=== PATIENT | female | born 1960 | race Caucasian/White ===

== ENCOUNTER 2024-03-01 05:12 | Observation (INO) ==
--- NOTE | 2024-01-22 11:10 | PAT Medication Instructions ---
Medication Instructions Date of Service January 22, 2024 Home Medications acetaminophen 650 mg tablet,extended release 1,300 mg PO BID PRN Pain celecoxib 200 mg capsule (Celebrex) 200 mg PO BID multivitamin 1 tab PO QAM tramadol 50 mg tablet 50 mg PO Q8H PRN Pain ASK your surgeon for instructions celecoxib 200 mg capsule (Celebrex) 200 mg PO BID DO NOT take the morning of surgery multivitamin 1 tab PO QAM Take morning of surgery With a small sip of water, OTHERWISE NOTHING TO EAT OR DRINK AFTER MIDNIGHT: acetaminophen 650 mg tablet,extended release 1,300 mg PO BID PRN Pain (if needed) tramadol 50 mg tablet 50 mg PO Q8H PRN Pain (if needed) Take evening before surgery acetaminophen 650 mg tablet,extended release 1,300 mg PO BID PRN Pain (if needed) tramadol 50 mg tablet 50 mg PO Q8H PRN Pain (if needed) Other Notes If you have any questions please call us at [phone] or [phone] or [phone] or [phone]
--- NOTE | 2024-01-27 10:20 | Anesthesiology Consultation ---
Date of Service January 27, 2024 Assessment & Plan (1) Encounter for pre-operative examination: - Infectious disease screening: Per assessment on 01/27/24: No known infectious disease contacts or current infectious disease symptoms. No noted recent Covid positive test result. - Outpatient joint assessment: Pt currently scheduled for inpatient pathway (per surgeon paperwork + patient confirmation > OR made aware). If surgeon requests review for outpatient joint pathway, patient is acceptable candidate for outpatient joint program from anesthesia standpoint pending surgeon's office assessment that patient is motivated, has good support and completes [facility] Program preop requirements. - S/P Left NISHA (09/26/16): SAB at L3/4 x1 attempt at [facility] - Patient acceptable risk for surgery pending surgeon-ordered PCP preop evaluation ([facility] Levon Adams, appt 02/18). Chart Review Chart Review: Patient seen in Pre Admission Testing Teaching & Discussion Pre-Anesthesia Teaching/Discussion Notes: Instructed NPO after midnight before surgery,except medications with 15 cc of water. Medication instructions provided according to the PAT guidelines. History Surgery Operation Date: 03/01/24 10:50 Proposed Procedures p Right Total Hip Replacement - Anterior Approach - Tico Healy MD Height/Weight Height: 5 ft 9 in Weight: 123.7 kg Allergies Allergy/AdvReac Type Severity Reaction Status Date / Time Egg Derived Allergy Mild Rash, Verified 01/27/24 09:07 diarrhea Penicillins Allergy Mild Childhood Verified 01/27/24 09:07 reaction ("told not to take") Medications Home Medications Medication Instructions Recorded Confirmed Last Taken acetaminophen 650 mg 1,300 mg PO BID PRN Pain 01/13/24 01/13/24 Unknown tablet,extended release celecoxib 200 mg capsule (Celebrex) 200 mg PO BID 01/13/24 01/13/24 Unknown multivitamin 1 tab PO QAM 01/13/24 01/13/24 Unknown tramadol 50 mg tablet 50 mg PO Q8H PRN Pain 01/13/24 01/13/24 Unknown Past Medical History Medical History Osteoarthritis Exercise / Class Metabolic Activity III < 4 Walking/Shop/Light housework Past Surgical History Surgical History History of bilateral tubal ligation History of dilatation and curettage D&E History of total left hip arthroplasty Left NISHA (09/26/16): SAB at L3/4 x1 attempt at [facility] History of total left knee replacement History of total right knee replacement Hx laparoscopic cholecystectomy Hx of arthroscopy of left knee multiple Hx of arthroscopy of right knee multiple Hx of bilateral cataract extraction Hx of knee surgery multiple prior to arthroscopies Nausea and vomiting after administration of anesthetic agent Remote hx, no issue with more recent procedures since the Past Anesthesia History No Hx of Anesthesia Complications and No Family Hx of Anesthesia Complications History of PONV History of PONV (Remote hx, no issue with more recent procedures since the ) and Hx of Motion Sickness (occasional) Social History Smoking Status: Never smoker Do You Dip or Chew Tobacco: No Hx Alcohol Use: Yes alcohol intake frequency: holidays/special occasions only Hx Substance Use: No substance use type: does not use Review of Systems Patient denies chest pain, shortness of breath, dyspnea on exertion, fever, chills, cough, wheezing, palpitations. Physical Exam Vital Signs BP 135/84 P 81 TEMP 97.9 SP02 95%RA RESP 16 Physical Full cervical extension range of motion. Full TMJ range of motion. TMD 2.5 finger breaths (small chin) Mallampati Score 1 Dentition: missing molars, + several crowns Lungs: clear throughout to auscultation Cardiac: regular rate and rhythm, no murmurs noted, distant heart sounds Spine: normal Carotid arteries: negative bruit Extremities: no LE edema Lab Results Anesthesia Preop Results Results Anesthesia Widget: WBC 7.40 K/ul (4.8-10.8) 01/27/24 Hgb 14.4 g/dl (12.0-16.0) 01/27/24 Hct 44.4 % (37.0-47.0) 01/27/24 Plt 275 K/uL (130-400) 01/27/24 Na 139 mmol/L (136-145) 01/27/24 K 4.3 mmol/L (3.5-5.1) 01/27/24 Cl 105 mmol/L (98-107) 01/27/24 CO2 29 mmol/L (21-32) 01/27/24 BUN 18 mg/dl (6-23) 01/27/24 Creat 0.74 mg/dl (0.6-1.2) 01/27/24 Glucose Level 105 mg/dl (70-99(Fasting)) H 01/27/24 PT 11.1 Seconds (9.0-12.0) 01/27/24 PTT 29 Seconds (21-31) 01/27/24 INR 1.0 (0.9-1.1) 01/27/24 Urine Color Dark Yellow 01/27/24 Urine Appearance Cloudy (Clear) A 01/27/24 Urine pH 5.0 (4.5-7.5) 01/27/24 Urine Specific Omer 1.034 (1.000-1.030) H 01/27/24 Urine Protein Trace (Negative) H 01/27/24 Urine Glucose (UA) Negative (Negative) 01/27/24 Urine Ketones Negative (Negative) 01/27/24 Urine Blood Negative (Negative) 01/27/24 Urine Nitrite Negative (Negative) 01/27/24 Urine Bilirubin Negative (Negative) 01/27/24 Urine Urobilinogen Negative (Negative) 01/27/24 Urine Leukocyte Esterase Trace (Negative) H 01/27/24 Urine WBC (Auto) 0-5 /hpf (0-5) 01/27/24 Urine RBC (Auto) 6-10 /hpf (0-2) H 01/27/24 Urine Hyaline Casts (Auto) 3-5 /lpf (0-2) H 01/27/24 Urine Epithelial Cells (Auto) 11-20 /hpf (0-2) H 01/27/24 Urine Bacteria (Auto) 2+ (None Seen) H 01/27/24 Blood Type AB Positive 01/27/24 Antibody Screen NEGATIVE 01/27/24 Testing Laboratory Results *Surgeon's office made aware of abnormal UA* Electrocardiogram Date: 01/27/24 NSR at 70bpm. "Normal ECG" Chest X-Ray Date: 01/27/24 FINDINGS: Stable small linear scarlike density at the left lung base. Otherwise, the lungs are clear. No pleural effusions. No pneumothorax. The heart is normal in size. No acute fractures. IMPRESSION: No significant change compared to the prior study. No acute process.
--- NOTE | 2024-02-25 15:28 | History & Physical Report ---
Date of Service February 25, 2024 Assessment & Plan (1) Degenerative joint disease of right hip: Plan: Right total hip replacement direct anterior approach overnight stay home health will be with [facility] (2) Obesity, Class III, BMI 40-49.9 (morbid obesity): History of Present Illness Chief Complaint: Right hip pain Primary Care Provider: NO PCP Patient is an obese 62-year-old female with a history of bilateral total knees and left total hip replacement. She now presents with greater than 1 year of right hip and groin pain. She has limited standing and walking tolerance associated with decreased range of motion. She cannot tie her shoe and sock. She requires a cane for ambulation. She has tried a trochanteric injection which has not helped. She has not recently lost 40 pounds and a test anticipation for surgery. She is admitted now for elective hip replacement. Allergies Allergy/AdvReac Type Severity Reaction Status Date / Time Egg Derived Allergy Mild Rash, Verified 01/27/24 09:07 diarrhea Penicillins Allergy Mild Childhood Verified 01/27/24 09:07 reaction ("told not to take") Home Medications Medication Instructions Recorded Confirmed Type acetaminophen 650 mg 1,300 mg PO BID PRN Pain 01/13/24 01/13/24 History tablet,extended release celecoxib 200 mg capsule (Celebrex) 200 mg PO BID 01/13/24 01/13/24 History multivitamin 1 tab PO QAM 01/13/24 01/13/24 History tramadol 50 mg tablet 50 mg PO Q8H PRN Pain 01/13/24 01/13/24 History Past Med/Surg History Medical History Osteoarthritis Surgical History Nausea and vomiting after administration of anesthetic agent Remote hx, no issue with more recent procedures since the 1980s History of dilatation and curettage D&E History of bilateral tubal ligation Hx of knee surgery multiple prior to arthroscopies Hx of arthroscopy of right knee multiple Hx of arthroscopy of left knee multiple History of total left hip arthroplasty Left NISHA (09/26/16): SAB at L3/4 x1 attempt at [facility] History of total right knee replacement History of total left knee replacement Hx laparoscopic cholecystectomy Hx of bilateral cataract extraction Social History Smoking Status: Never smoker Second Hand Exposure: Yes (hx growing up); Do You Dip or Chew Tobacco: No; Tobacco Cessation Education Requested by Patient: No Hx Alcohol Use: Yes Hx Substance Use: No Preferred Language: Setswana Communication Ability: Effective Mathematics Faculty Member Required: No Beliefs That Will Affect Care: None Current Living Situation: Spouse Other Information That Helps Us Care for You: No Feels Safe at Home: Yes Safety Concerns: Feels Safe At This Time Assistive Devices: Glasses Review of Systems Review of Systems: Right hip and groin pain Physical Exam Physical Exam: Weight is 123 kg BMI of 40 General: Obese woman who appears slightly older than her stated age HEENT: NCAT, EOMI, PERRLA. Neck: Negative bruits Heart: Regular rate and rhythm no murmurs Lungs: Breath sounds clear and present in all morales Abdomen: Obese soft nontender bowel sounds are positive Extremities: Right hip shows equal leg lengths to the left passive range of motion is 0 to 85 degrees flexion -15 degrees internal rotation all which reproduces groin pain. Neurological and vascular: Intact Results & Data Results & Data Vital Signs (Past 12 Hours) Blood pressure 124/80 Pulse 87
[~2024-03-01 05:12] MED LIST: ALLERGY Noted to ORDERED Medication SCH
[2024-03-01] MEDS: LR 500ML BOLUS, THEN 15ML/HR IV SCH (05:55)
[2024-03-01] MEDS: dexAMETHasone**PF** 10 MG/ML VIAL IV SCH (05:56)
[2024-03-01] MEDS: traMADol HCL 50 MG TABLET PO SCH (05:57)
[2024-03-01] MEDS: ACETAMINOPHEN 500 MG TAB PO SCH ×2 (05:58→14:06)
[2024-03-01] MEDS: FAMOTIDINE 20 MG TAB PO SCH (05:59)
[2024-03-01] MEDS: METOCLOPRAMIDE HCL 10 MG TABLET PO SCH (06:00)
[2024-03-01] MEDS: LR 60ML/HR IV SCH (06:01)
[2024-03-01] MEDS: GABAPENTIN 600 MG DOSE PO SCH (06:02)
[2024-03-01] MEDS: CeleBREX 200 MG CAP PO SCH ×2 (06:02→11:30)
[2024-03-01] MEDS ORDERED: Nursing to Pharmacy Communication SCH (06:15)
[2024-03-01] MEDS ORDERED: BUPIVACAINE 0.5 % 5 MG/1 ML PF 10ML VIAL ONE (06:21)
[2024-03-01] MEDS ORDERED: fentaNYL citrate PF 100 MCG/2 ML VIAL ONE (06:25)
[2024-03-01] MEDS ORDERED: MIDAZOLAM HCL 1 MG/ML 2ML VIAL ONE (06:25)
[2024-03-01] MEDS ORDERED: PROPOFOL IV EMULSION 10 MG/ML 20 ML VIAL IV ONE (06:26)
[2024-03-01] MEDS ORDERED: ONDANSETRON INJ 2 MG/ML 2 ML VIAL ONE (06:30)
[2024-03-01] MEDS ORDERED: DEXAMETHASONE SOD INJ 4 MG/ML VIAL ONE (06:30)
--- NOTE | 2024-03-01 06:33 | History & Physical Bridge Note ---
Date of Service March 01, 2024 History & Physical Bridge Note I have examined the patient, reviewed the History & Physical and in the interval since the performance of the History & Physical I have noted the following changes of clinical significance: no changes noted
[2024-03-01] MEDS ORDERED: SCOPOLAMINE 1 MG/72 HR TDSY PATCH TD ONE (06:41)
[2024-03-01] MEDS: TRANEXAMIC ACID 1,000 MG **IV Pre-op IV SCH (06:45)
[2024-03-01] MEDS ORDERED: ePHEDrine sulfate 50 MG/ML AMP IV PRN (07:05)
[2024-03-01] MEDS ORDERED: HYDROmorphone INJ 1 MG/ML SYRINGE IV PRN (07:05)
[2024-03-01] MEDS ORDERED: NALOXONE HCL 0.4 MG/1 ML VIAL/CARP IV PRN ×2 (07:05→08:42)
[2024-03-01] MEDS ORDERED: ATROPINE SULFATE 0.1 MG/ML 10ML SYR IV PRN (07:05)
[2024-03-01] MEDS ORDERED: fentaNYL citrate PF 100 MCG/2 ML VIAL IV PRN (07:05)
[2024-03-01] MEDS ORDERED: FLUMAZENIL 0.1 MG/1 ML 10 ML VIAL IV PRN (07:05)
[2024-03-01] MEDS ORDERED: ONDANSETRON INJ 2 MG/ML 2 ML VIAL IV PRN ×2 (07:05→08:42)
[2024-03-01] MEDS ORDERED: PROMETHAZINE HCL 6.25 MG in SODIUM CHLORIDE 0.9% 50 ML IV PRN (07:05)
[2024-03-01] MEDS: ceFAZolin 3000MG 3,000 MG/72.5 ML BAG IV STA (07:12)
[2024-03-01] MEDS ORDERED: PHENYLEPHRINE 100MCG/ML 10ML SYR IV ONE (07:42)
[2024-03-01] MEDS ORDERED: METOCLOPRAMIDE HCL INJ 5 MG/ML 2 ML VIAL ONE (07:42)
[2024-03-01] MEDS ORDERED: PHENYLEPHRINE HCL 10 MG/ML VIAL ONE (07:53)
[2024-03-01] MEDS: ORTHO JOINT ANESTHETIC ONE (07:55)
[2024-03-01] MEDS ORDERED: ePHEDrine sulfate 50 MG/ML AMP ONE (08:20)
[2024-03-01] MEDS ORDERED: KETOROLAC 30 MG/ML VIAL ONE (08:33)
[2024-03-01] MEDS: ROPIV 0.5% 246mg, Ketorolac 30mg, EPINEPHrine 0.5mg in NSS INFIL SCH (08:38)
[2024-03-01] MEDS: TRANEXAMIC ACID 1,000 MG **IV Intra-op IV SCH (08:38)
--- NOTE | 2024-03-01 08:41 | Post Operative Brief Note ---
Immediate Post Op Note v1 Date of Surgery March 01, 2024 Pre & Post Diagnosis Operation Date: 03/01/24 07:15 Pre-Op Diagnosis: Degenerative joint disease of right hip Morbid obesity BMI 42 Post-Op Diagnosis: Degenerative joint disease of right hip Morbid obesity BMI 42 I identified the patient and participated in the time-out.: Yes Procedure Operation Date: 03/01/24 07:15 Actual Procedures p Right Total Hip Replacement - Anterior Approach(Right) - Tico Healy MD Surgeon Tico Healy MD Manager Systems Nathan Mooney PAAbdoulayeC Estimated Blood Loss 200 Findings Consistent with Post-Op Diagnosis Drains Hemovac Drain
[2024-03-01] MEDS ORDERED: METOCLOPRAMIDE HCL INJ 5 MG/ML 2 ML VIAL IV PRN (08:42)
[2024-03-01] MEDS ORDERED: ALUMINUM/MAGNESIUM SUSP 30 ML UDC PO PRN (08:42)
[2024-03-01] MEDS ORDERED: bisacodyL 10 MG SUPP PR PRN (08:42)
[2024-03-01] MEDS ORDERED: MAGNESIUM HYDROXIDE SUSP 30 ML UDC PO PRN (08:42)
--- NOTE | 2024-03-01 08:53 | Fluoroscopy Report ---
FL hip RT 1V CLINICAL HISTORY: RT ANTERIOR NISHA COMPARISON STUDY: Pelvis radiograph September 26, 2016. FLUOROSCOPY TIME: 22 seconds. Ka, r: 6.01 mGy FLUOROSCOPIC IMAGES: 1 FINDINGS: Fluoroscopy was provided during total anterior right hip arthroplasty. Alignment is anatomi c. Hardware is intact. No fracture is identified by fluoroscopy. IMPRESSION: Fluoroscopy provided during total anterior right hip arthroplasty. ACT 112: Negative or not required by law. Electronically signed by: Johnny Castellano M.D. 03/01/2024 8:52 AM
--- NOTE | 2024-03-01 08:58 | Operative Report ---
Post Operative Report Pre & Post Diagnosis Operation Date: 03/01/24 07:15 Pre-Op Diagnosis: Degenerative joint disease of right hip Morbid obesity BMI 42 Post-Op Diagnosis: Degenerative joint disease of right hip Morbid obesity BMI 42 I identified the patient and participated in the time-out.: Yes Procedure Operation Date: 03/01/24 07:15 Actual Procedures p Right Total Hip Replacement - Anterior Approach(Right) - Tico Healy MD Surgeon Tico Healy MD Banking Analyst Nathan Mooney PA-C Estimated Blood Loss 200 Findings Consistent with Post-Op Diagnosis patient had a morbidly obese body habitus with a very large subcutaneous fat layer and large pendulous abdomen which added an element of increased difficulty and increased the surgical time by at least 25% The hip showed severe degenerative changes with a chronically inflamed synovial lining Specimens femoral head capsular tissue and partial synovial tissue Complications none Indications components used: [employer] anthology hip system: Acetabulum size 52 with 25 mm dome screw and 36 mm highly cross-linked polyethylene liner. Femur size 4 standard offset with 0 neck length 36 mm Oxinium head Note: Again this patient's morbidly obese body habitus added an element of increased difficulty and at least 25% increased time to the surgical procedure. Description of Procedure Following satisfactory spinal anesthesia the patient was supine on the operating room table. Positioning was difficult because of the patient's large body habitus. The large pendulous abdomen had to be taped out of the way with multiple pieces of tape. The right leg was placed in the traction and device in the left leg in the well-leg murphy. Positioning was confirmed with fluoroscopy which was suboptimal visualization because of the patient's large body habitus. The leg was then prepared with ChloraPrep and draped sterilely. A surgical timeout was performed. An anterior approach was performed in the interval between the sartorius and te nsor muscles. There was a very large subcutaneous fat layer with multiple bleeding points which were controlled. The circumflex femoral vessels were identified and coagulated. An anterior capsulotomy was performed exposing the arthritic femoral neck and head. Fluoroscopy was used to confirm femoral neck resection level which was completed and the arthritic femoral head was removed. The acetabular self-retaining retractor was placed. Acetabular preparation was completed with excision of labral and some of the capsular tissue. The wound was extremely deep because of the patient's large body habitus. The acetabulum was then reamed under direct vision. A 52 shell was impacted into a healthy bed into a position of 35 to 40 degrees of abduction 25 degrees of anteversion confirmed with fluoroscopy. A dome screw was placed followed by the polyethylene liner and local anesthetic was placed. Should be noted that there was general oozing throughout especially from the cut surface of the femur. The femur was placed into a position of external rotation extension and adduction. Femoral canal was identified and was prepared to the size 4. Note that preop templating was off again because of the large body habitus. A trial reduction with a size 4 standard offset stem and a 0 neck length head showed good fit and fill of the proximal canal and very good orientation of the components. Leg length and offset appeared to be restored at the level of the lesser trochanter. The hip was dislocated. The trial component removed. Local anesthetic was placed. The wound was irrigated and the final stem head complex of the same size was placed. The hip was reduced with fluoroscopy confirming similar findings. The wound was irrigated with 500 cc of experience irrigation. Because of the patient's large body habitus and general oozing a drain was placed deep. The tensor fascia was closed with a running suture of 0 strata fix. The subcutaneous fat was then irrigated and another drain placed because of the large size of the fat layer. The subcutaneous fat was closed in multiple layers with 0 strata fix. The skin was closed with a running subcuticular stitch of 3 oh strata fix. Prineo dressing and negative pressure wound dressing were applied. Patient was returned to her bed in stable condition. Note: Nathan STARR was present and assisted throughout due to the c omplicated nature of this case. He help with preparation and set up an assistant manager trainee throughout. He assisted with hemostasis and exposure throughout the procedure. He also closed the fascial subcutaneous and skin layers and applied the postop dressing. I attest to the content of the Intraoperative Record and any orders documented therein. Any exceptions are noted below.
[2024-03-01] MEDS: SODIUM CHLORIDE 0.9% 1,000 ML IV SCH (10:36)
[2024-03-01] MEDS: FAMOTIDINE/PF 20 MG/2 ML VIAL IV ONE (10:38)
--- NOTE | 2024-03-01 11:12 | Anesthesiology Progress Note ---
Date of Service March 01, 2024 Anesthesia Post Procedure Vital Signs Vital Signs: Temp Pulse Pulse Resp BP Pulse Ox O2 Del Method 03/01/24 10:50 36.4 C L 91 H 16 123/81 96 Room Air 03/01/24 10:20 36.4 C L 98 H 18 136/82 96 Room Air 03/01/24 10:00 36.3 C L 97 H 18 124/83 95 Room Air 03/01/24 09:50 36.3 C L 94 H 18 128/73 97 Room Air 03/01/24 09:40 98 H 18 125/85 100 Room Air 03/01/24 09:30 93 H 22 127/83 100 Oxymask 03/01/24 09:20 97 H 17 138/86 97 Oxymask 03/01/24 09:12 36.3 C L 106 H 16 133/85 94 Room Air 03/01/24 05:38 36.7 C 73 20 167/95 H 99 Room Air O2 Flow Rate 03/01/24 10:50 03/01/24 10:20 03/01/24 10:00 0 03/01/24 09:50 0 03/01/24 09:40 0 03/01/24 09:30 6 03/01/24 09:20 6 03/01/24 09:12 03/01/24 05:38 Pain Intensity Right Hip: Pain Intensity: 3 Transfer of Care Handoff Completed per policy Notes Mental Status: alert / awake / arousable Patient Amnestic to Procedure: Yes Nausea / Vomiting: adequately controlled Pain: adequately controlled Airway Patency, RR, SpO2: stable & adequate BP & HR: stable & adequate Hydration State: stable & adequate Neuraxial Anesthesia: was administered and sensory block is resolving Anesthetic Complications: no major complications apparent
[2024-03-01] MEDS: ASPIRIN 81 MG ECTAB PO SCH (11:30)
[2024-03-01] MEDS: MULTIVITAMIN TAB PO SCH (11:30)
[2024-03-01] MEDS: DOCUSATE SODIUM 100 MG CAP PO SCH (11:30)
[2024-03-01] MEDS: ceFAZolin 2000MG 2,000 MG/15 ML SYR IV SCH (14:06)
[2024-03-01] MEDS: SENNA 8.6 MG TAB PO SCH (19:56)
[2024-03-01] MEDS: traMADol HCL 50 MG TABLET PO PRN (19:59)
[2024-03-02 06:53] LABS: Basophils # (auto) 0.01 K/uL (0.00-0.20); Basophils % (auto) 0.1 %; Hematocrit (blood only) 32.9 % (37.0-47.0); Hemoglobin 11.1 g/dl (12.0-16.0); Immature Granulocytes # (auto) 0.18 K/uL (0.01-0.20); Immature Granulocytes % (auto) 1.1 %; Lymphocytes # (auto) 1.08 K/uL (1.20-3.40); Lymphocytes % (auto) 6.7 %; Mean Corpuscular Hemoglobin 28.8 pg (25.0-34.0); Mean Corpuscular Hgb Conc 33.7 g/dL (32.0-36.0); Mean Corpuscular Volume 85.2 fL (80.0-100.0); Mean Platelet Volume 10.4 fL (9.4-12.4); Monocytes # (auto) 0.35 K/uL (0.11-0.59); Monocytes % (auto) 2.2 %; Neutrophils # (auto) 14.42 K/uL (1.40-6.50); Neutrophils % (auto) 89.9 %; Platelet Count 224 K/uL (130-400); RDW Coefficient of Variation 12.3 % (11.5-14.5); RDW Standard Deviation 37.8 fL (36.4-46.3); Red Blood Count 3.86 M/uL (4.20-5.40); White Blood Count 16.04 K/ul (4.8-10.8)
--- NOTE | 2024-03-02 07:31 | Orthopedic Progress Note ---
Date of Service March 02, 2024 Assessment & Plan (1) S/P total hip arthroplasty: Plan: patient is doing very well. She offers no complaints and is ambulating independently. She will be evaluated by physical therapy this morning but as long as she is cleared she will be discharged to home. Plan for follow[facility]up with [facility] to begin on . Today we did review her dressing management. She does have an adhesive allergy and she is to remove her darrell dressing in 7 days. We also reviewed her medication protocol and hip precautions. She will follow-up in the office in 2 weeks time (2) Obesity, Class III, BMI 40-49.9 (morbid obesity): Admission and Anticipated Discharge Date Admission Date: March 01, 2024 Subjective Postoperative day #1 right total hip replacement Patient reports feeling very well. She has been up and ambulatory to the bathroom without assistance. She states that she is very happy that she has no hip or groin pain and can ambulate without problems. She denies any lightheadedness or other symptoms. Physical Exam Physical Exam: Patient is examined at the bedside. Her hip dressing is clean dry and intact. Her thigh and calf are soft and nontender. Her hip is located. She is neurologically and vascularly intact. Hemovac drainage 100 cc last shift Results & Data Vital Signs (Past 12 Hours) Vital Signs Temp Pulse Resp BP Pulse Ox O2 Del Method 03/02/24 04:34 36.8 C 77 16 113/63 96 Room Air 03/02/24 00:33 119/66 03/01/24 23:22 36.5 C 80 15 95/57 L 94 Room Air Laboratory Results hemoglobin 11.1
[2024-03-02 08:27] LABS: BUN Creatinine Ratio 28.8 (10-20); Calcium 8.7 mg/dl (8.6-10.3); Creatinine Clr Calc Pharmacy 101.8 ml/min; Est GFR (African American) 90.9 ml/min; Est GFR (Non-African American) 78.5 ml/min; Potassium 4.4 mmol/L (3.5-5.1)
--- NOTE | 2024-03-04 13:23 | Discharge Summary ---
Date of Service March 04, 2024 Admission HPI Per Admitting Provider Patient is an obese 62-year-old female with a history of bilateral total knees and left total hip replacement. She now presents with greater than 1 year of right hip and groin pain. She has limited standing and walking tolerance associated with decreased range of motion. She cannot tie her shoe and sock. She requires a cane for ambulation. She has tried a trochanteric injection which has not helped. She has not recently lost 40 pounds and a test anticipation for surgery. She is admitted now for elective hip replacement. Admission Exam Per Admitting Provider Physical Exam: Weight is 123 kg BMI of 40 General: Obese woman who appears slightly older than her stated age HEENT: NCAT, EOMI, PERRLA. Neck: Negative bruits Heart: Regular rate and rhythm no murmurs Lungs: Breath sounds clear and present in all morales Abdomen: Obese soft nontender bowel sounds are positive Extremities: Right hip shows equal leg lengths to the left passive range of motion is 0 to 85 degrees flexion -15 degrees internal rotation all which reproduces groin pain. Neurological and vascular: Intact Principal Diagnosis Right Hip Djd Discharge Data Allergies Allergy/AdvReac Type Severity Reaction Status Date / Time Egg Derived Allergy Mild Rash, Verified 03/01/24 05:33 diarrhea Penicillins Allergy Mild Childhood Verified 03/01/24 05:33 reaction ("told not to take") Procedures Performed Operation Date: 03/01/24 07:15 Actual Procedures p Right Total Hip Replacement - Anterior Approach(Right) - Tico Healy MD Ordered Studies 03/01/24 07:15 FL hip RT 1V Routine Hospital Course (1) S/P total hip arthroplasty: Patient: KAREN HOWARD Admit Date: 03/01/24 MR#: [id number] Att Phy: Tico Healy MD Acct ID: [id number] Janine Phy: PCP,NO Date: 1960 Fam Phy: Age: 63 Location: 3E Sex: F Room/Bed: E311-1 cc: ~ *NOTICE TO RECEIVING [employer]/AGENCY This information is strictly Confidential and protected under [place] law. [place] law prohibits you from making any further disclosure of this information unless further disclosure is expressly permitted by the written consent of the person to whom it pertains or is authorized by law. A general authorization for the release of medical or other information is not sufficient for this purpose. Hospital accepts no responsibility if the information is made available to any other person, INCLUDING THE PATIENT. Date of Service March 02, 2024 Assessment & Plan (1) S/P total hip arthroplasty: Plan: patient is doing very well. She offers no complaints and is ambulating independently. She will be evaluated by physical therapy this morning but as long as she is cleared she will be discharged to home. Plan for follow-up with [facility] to begin on . Today we did review her dressing management. She does have an adhesive allergy and she is to remove her mare dressing in 7 days. We also reviewed her medication protocol and hip precautions. She will follow-up in the office in 2 weeks time (2) Obesity, Class III, BMI 40-49.9 (morbid obesity): Admission and Anticipated Discharge Date Admission Date: March 01, 2024 Subjective Postoperative day #1 right total hip replacement Patient reports feeling very well. She has been up and ambulatory to the bathroom without assistance. She states that she is very happy that she has no hip or groin pain and can ambulate without problems. She denies any lightheadedness or other symptoms. Physical Exam Physical Exam: Patient is examined at the bedside. Her hip dressing is clean dry and intact. Her thigh and calf are soft and nontender. Her hip is located. She is neurologically and vascularly intact. Hemovac drainage 100 cc last shift Results & Data Vital Signs (Past 12 Hours) Vital Signs Temp Pulse Resp BP Pulse Ox O2 Del Method 03/02/24 04:34 36.8 C 77 16 113/63 96 Room Air 03/02/24 00:33 119/66 03/01/24 23:22 36.5 C 80 15 95/57 L 94 Room Air Laboratory Results hemoglobin 11.1 Signed By: <Electronically signed by Tico Healy MD> 03/02/24 0731 Created: 03/02/24 0728 The status of this report is Signed. (2) Obesity, Class III, BMI 40-49.9 (morbid obesity): Total Time Total Time Spent Total Time Spent (In Minutes): 5 Discharge Plan Discharge Items Patient Disposition: Home - Home Health Services Reason For Visit: Right Hip Osteoarthritis Discharge Diagnosis: Right Hip Osteoarthritis Activity: Per Instructions section Weightbearing: Full weightbearing Non-emergency contact: Surgeon Call non-emergency contact if: you have any medication questions, your pain is not controlled, your temperature is above 101.5, your wound has increased redness and your wound has increased drainage Follow-up/Referrals: [facility] [Outside] Tico Healy MD [Surgeon] - (Follow up with Dr. Healy or his PA in 2 weeks from the day of your surgery for your first post operative visit. ) PCP,NO [Primary Care Provider] - Diet: Regular Addtl Attending Provider Instructions: DR. BATEMAN POST-OP INSTRUCTIONS FOR TOTAL HIP ARTHROPLASTY PLEASE REVIEW PRIOR TO SURGERY Day of Surgery You will be admitted and meet the nursing and anesthesia team. Dr. Healy will see you and sign your operative side. Anesthesia will place your spinal anesthetic in the pre-op area Your surgery will be performed and last approximately 1 2 hours. Upon waking, you will notice a dressing and ice pack on your hip. You will remain in the recovery room for 1 2 hours, then be transferred to your room in the ambulatory surgical area if you are to go home the same day as your surgery or transferred to the orthopedic floor if you will be staying overnight. Most of Dr. Bateman total hip patients go home the same day as surgery. This depends on how well you feel. Patients generally seem to feel better in their own home environment, and the risk of exposure to bad bugs is much lower. (Your post-operative medications will be sent to your pharmacy approximately 1-2 days prior to your procedure) Day 1 post-op (if you have an overnight stay in the hospital) You will have bloodwork drawn in the morning Physical therapy will evaluate you in the morning. You will start getting out of bed and ambulating with a walker. They will instruct you on hip motion exercises. Use your cold packs as instructed. This will decrease swelling and minimize pain. visitor services technician will discuss your discharge plan. Discharge will generally be around 11am Day 1 post-op (all patients) You will be taking Aspirin 81mg twice for 4 weeks to decrease the risk of a blood clot. You will most likely have a drain and a MARE (superficial wound VAC) dressing post-operatively. This will keep your incision dry as well as aid in early healing. The batteries will wear out and the VAC will lose suction around day 6 - 7 post-op. At that time, you may turn off the device and disconnect from the dressing. You must keep the dressing on until your first post- operative visit with Dr. Healy. If the dressing appears to be saturated, please call our office. Day 2 14 post-op You will have a home nurse visit to assess your status and remove your drain on post-op day 2. You are permitted to shower immediately with the VAC. Do not soak the dressing let the shower flow on your opposite side, and pat dry the plastic. Once the dressing has been removed, you may shower normally with the incision exposed. Do not rub the area simply let soapy water run over the incision and lightly pat dry. Therapy will begin on post-op day 3. Your therapy prescription will be sent to your home therapy company/therapist You should continue doing your home exercises Week 2 post-op and forward You will have your first post-op appointment 2 weeks after surgery which should have been scheduled for you by our office. This appointment will be to check your incision, progression of therapy and pain control. Xrays will be taken to evaluate the prosthesis. You will continue to use a cane or a walker until you feel safe enough to stop using it. You will have a 6-week post-op appointment which should have been scheduled for you by our office. Xrays will be taken to evaluate the prosthes is. You will continue to advance range of motion. By 3 to 4 months after surgery, you should have almost full range of motion and may resume most activities. You may have some pain around the hip with certain activities this is completely normal. You will be scheduled for a 1 year post-op appointment to assess your outcome (sooner if Dr. Healy feels necessary). Pain: The immediate post-op period after hip replacement surgery can be painful. However, the degree and frequency of the pain is generally much less than knee replacement surgery. You should take your pain medicine as you need it, especially prior to physical therapy and bedtime. Your pain will decrease and you may transition to a milder pain medicine (with less side effects, such as Tylenol) as soon as possible. It is common to have pain at night that interferes with sleep this can last for several months. Pain medicines can cause nausea and constipation do not take more than you need. You may be prescribed one or more of the following MEDICATIONS: 1. Celebrex this controls inflammation and makes pain medications mor effective it will be taken once or twice a day 2. Tylenol a pain medicine that can help to decrease your pain you should take 1000mg three times a day 3. Tramadol a pain medicine that can be taken every 4-6 hours (instead of Oxycodone) as needed to control your pain 4. Oxycodone a VERY strong pain medicine that can be taken every 4-6 hours (instead of Tramadol) as needed to control your pain. This medication has the most side effects and is usually not necessary for hip replacements. 5. Aspirin 81mg blood thinning medication to help minimize the risk of development of blood clots unfortunate side effects of pain medicine include nausea and constipation if you experience these issues or have any questions about your post-op medications, call [facility] at for assistance/advice on how to manage these issues Hip replacement surgery does not require a lot of aggressive physical therapy. Learning to walk safely and obeying hip precautions are most important. While in the hospital, you will be shown a series of home exercises you should perform these exercises 3 4 times daily in addition to physical therapy. After the completion of home therapy (approx.. 2 weeks), most therapy exercises can be done on your own. You should walk several times a day. Try not to be standing for more than an hour at a time during the first 4 weeks post-op as you may experience more swelling. If you develop swelling, you need to elevate your legs/feet at or above the level of your heart. You may progress from a walker to a cane to walking independently as you feel comfortable. Unless it is an emergency, YOUR ARE NOT PERMITTED TO HAVE ANY DENTAL CLEANING/WORK UNTIL 3 MONTHS AFTER SURGERY. You will be required to take an antibiotic prior to any dental cleaning or dental work in order to prevent your joint prothesis from getting infected. This medication is a one time per visit dose to be taken one hour prior to appointment. You may call our office for this prescription or your dentist may be willing to prescribe the medication. Remember to contact [facility] at if you develop any signs of infection which include increased swelling, pain, redness, drainage from incision, warmth, fever, chills or severe pain unrelieved by pain medication. If you develop any chest pain or shortness of breath, you should proceed immediately to the nearest Emergency Room. It is normal to run a low-grade fever after surgery. If your fever is consistent at 101.0 or higher, you will need to contact the office. Stand-Alone Forms: My [facility], Pain - Opioid Pain Management Medications and DC Order Prescriptions: Continued multivitamin Tablet 1 tab PO QAM celecoxib [Celebrex] 200 mg Capsule 200 mg PO BID Discontinued tramadol 50 mg Tablet 50 mg PO Q8H PRN (Reason: Pain) acetaminophen [Tylenol Arthritis] 650 mg Tablet Extended Release 1,300 mg PO BID PRN (Reason: Pain) Discharge Orders: Discharge Order (Routine); Ordered 03/02/24 Ordered By: Nathan Almanzar/Other Patient Handouts: DVT Post Op Prevention Admission Data Admit Date/Time: 03/01/24 08:43 Attending Provider: Tico Healy Admit Provider: Tico Healy Primary Care Provider: PCP,NO Other Interventions: Discharge Summary Assessment (RN) Last Done: 03/02/24 09:28
== END 2024-03-02 10:13 | disposition home health service (06) | DRG 470 ==
LOC: ASU 05:12 → 3E 08:43 → INTOOBSV 08:43